=== PATIENT | female | born 1995 | race Caucasian/White ===

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

== ENCOUNTER 2017-04-24 08:44 | Emergency (ER) | payer SELFPAY ==
[2017-04-24] MEDS ORDERED: HYDROcodone/APAP 5/325MG 1 TAB TABLET ×2 (09:49)
[2017-04-24 12:05] LABS: NEGATIVE OBC STREP NEG; POSITIVE OBC STREP POS
== END 2017-04-24 09:55 | disposition home or self-care (01) ==
LOC: ER 08:44
DX: J02.9 Acute pharyngitis, unspecified (principal); J45.909 Unspecified asthma, uncomplicated; Z88.2 Allergy status to sulfonamides; Z88.1 Allergy status to other antibiotic agents; Z88.5 Allergy status to narcotic agent; Z91.013 Allergy to seafood
CPT/HCPCS: 87070; 87880; 99283

== ENCOUNTER 2017-06-03 17:35 | Emergency (ER) | payer SELFPAY ==
[2017-06-03] MEDS: ALBUTEROL SULFATE 2.5 MG/3 ML NEBU. INH (18:27)
[2017-06-03] MEDS: IPRATRPIUM/ALBUTEROL 0.5/2.5MG 3 ML NEBU. NEB (18:27)
[2017-06-03] MEDS: predniSONE 10 MG TABLET PO (19:04)
== END 2017-06-03 19:33 | disposition home or self-care (01) ==
LOC: ER 17:35
DX: J45.901 Unspecified asthma with (acute) exacerbation (principal); E66.9 Obesity, unspecified; Z88.2 Allergy status to sulfonamides; Z79.899 Other long term (current) drug therapy; Z88.1 Allergy status to other antibiotic agents; Z88.5 Allergy status to narcotic agent; Z91.013 Allergy to seafood
CPT/HCPCS: 71046; 94640; 99284-25; J7512; J7613; J7620

== ENCOUNTER 2017-07-11 20:59 | Emergency (ER) | payer SELFPAY | END 2017-07-11 21:42 | disposition left against medical advice (07) | LOC: ER 20:59 | DX: R05 Cough (principal); R09.81 Nasal congestion; Z53.21 Procedure and treatment not carried out due to patient leaving prior to being seen by health care provider ==

== ENCOUNTER 2017-07-12 12:53 | Emergency (ER) | payer SELFPAY | END 2017-07-12 14:20 | disposition home or self-care (01) | LOC: ER 12:53 | DX: J30.2 Other seasonal allergic rhinitis (principal); J45.909 Unspecified asthma, uncomplicated; Z88.2 Allergy status to sulfonamides; Z88.8 Allergy status to other drugs, medicaments and biological substances; Z88.5 Allergy status to narcotic agent; Z91.013 Allergy to seafood | CPT/HCPCS: 99283 ==

== ENCOUNTER 2017-07-22 13:06 | Emergency (ER) | payer SELFPAY ==
[2017-07-22] MEDS: IV NORMAL SALINE 1000ML BAG 1,000 ML IV (14:15)
[2017-07-22] MEDS: ONDANSETRON PF 4 MG/2 ML VIAL. IV (14:15)
[2017-07-22] MEDS: DICYCLOMINE HCL 10 MG CAPSULE PO (14:15)
[2017-07-22 14:16] LABS: ADD MAN DIFF? NO
[2017-07-22 14:20] LABS: BASO % 1 % (0-3); EOS # 0.2 x10^3/uL (0.0-0.7); EOS % 2 % (0-3); HEMOGLOBIN 15.9 g/dL (12.0-15.5); LYMPH # 1.5 x10^3/uL (1.0-4.8); LYMPH % 16 % (24-48); MEAN CORPUSCULAR HEMOGLOBIN 30 pg (25-35); MEAN CORPUSCULAR HGB CONC 35 g/dL (31-37); MEAN CORPUSCULAR VOLUME 84 fL (79-100); MONO # 0.8 x10^3/uL (0.0-1.1); MONO % 8 % (0-9); NEUT # 6.8 x10^3uL (1.8-7.7); NEUT % 73 % (31-73); PLATELET COUNT 275 x10^3/uL (140-400); RED BLOOD COUNT 5.38 x10^6/uL (3.50-5.40); RED CELL DISTRIBUTION WIDTH 13.5 % (11.5-14.5); WHITE BLOOD COUNT 9.3 x10^3/uL (4.0-11.0)
[2017-07-22 14:29] LABS: ANION GAP 10 (6-14); BLOOD UREA NITROGEN 9 mg/dL (7-20); BUN/CREATININE RATIO 11 (6-20); CALCIUM 8.6 mg/dL (8.5-10.1); CARBON DIOXIDE 26 mmol/L (21-32); CHLORIDE 104 mmol/L (98-107); CREATININE 0.8 mg/dL (0.6-1.0); GFR 91.4; GLUCOSE 92 mg/dL (70-99); POTASSIUM 3.8 mmol/L (3.5-5.1); SODIUM 140 mmol/L (136-145)
[2017-07-22 14:35] LABS: ALBUMIN 3.6 g/dL (3.4-5.0); ALBUMIN/GLOBULIN RATIO 0.8 (1.0-1.7); ALK PHOS 77 U/L (46-116); ALT (SGPT) 24 U/L (14-59); AST (SGOT) 18 U/L (15-37); LIPASE 91 U/L (73-393); TOTAL BILIRUBIN 0.9 mg/dL (0.2-1.0)
[2017-07-22 14:51] LABS: NEG OBC UR NEG; POS OBC UR POS; U PREG PATIENT NEGATIVE (NEG)
[2017-07-22 14:52] LABS: BILIRUBIN,URINE NEGATIVE (NEG); CLARITY,URINE CLEAR; GLUCOSE,URINE NEGATIVE (NEG); NITRITE,URINE NEGATIVE (NEG); PH,URINE 5.5; PROTEIN,URINE NEGATIVE (NEG-TRACE)
[2017-07-22 15:14] LABS: COLOR,URINE DK YELLOW; RBC,URINE 0 /HPF (0-2)
[2017-07-22 15:15] LABS: BACTERIA,URINE MANY /HPF (0-FEW); SQUAMOUS EPITHELIAL CELL,UR MANY /LPF
[2017-07-23 05:25] LABS: C DIFF BY PCR Negative (Negative)
== END 2017-07-22 15:59 | disposition home or self-care (01) ==
LOC: ER 13:06
DX: N30.00 Acute cystitis without hematuria (principal); R19.7 Diarrhea, unspecified; J45.909 Unspecified asthma, uncomplicated; Z88.2 Allergy status to sulfonamides; Z88.8 Allergy status to other drugs, medicaments and biological substances; Z88.5 Allergy status to narcotic agent; Z91.013 Allergy to seafood
CPT/HCPCS: 36415; 80053; 81001; 81025; 83690; 85025; 87045; 87086; 87324; 96361; 96374; 99284; J2405; J7030

== ENCOUNTER 2018-01-11 08:42 | Emergency (ER) | payer SELFPAY ==
[~2018-01-11] VITALS: Ht 167.6 cm; Wt 104.3 kg
[~2018-01-11 08:42] MED LIST changes: +AMOX500C PO; +CEPH500T PO; +FLUT9.9S NS; +HYDR-971 PO; +METR500T PO; +MONT10TA9 PO; +ONDA4TAB10 SL; +PRED50TA PO; +PROAIR HFA8.5 GM INH; +VENTOLIN HFA18 GM INH
[2018-01-11 08:52] VITALS: BP 120/67
--- NOTE | 2018-01-11 08:59 | PHYS DOC ---
Past Medical History Past Medical History: Asthma, Other Additional Past Medical Histor: seasonal allergies Past Surgical History: Other Additional Past Surgical Histo: I&D LEFT EAR Alcohol Use: None Drug Use: None Adult General Chief Complaint Chief Complaint: SORE THROAT HPI HPI Patient is a 22 year old female with history of asthma, smoking, who presents today complaining of sore throat, body aches, chills, bilateral ear pain rated as mild described as sharp, since yesterday. Also complaining of 3 episodes of diarrhea. Denies any fever. Review of Systems Review of Systems Constitutional: Reports chills, denies fever Eyes: Denies change in visual acuity, redness, or eye pain [] HENT: Denies nasal congestion or sore throat [] Respiratory: Denies cough or shortness of breath [] Cardiovascular: No additional information not addressed in HPI [] GI: Reports diarrhea. Denies abdominal pain, nausea, vomiting, bloody stools : Denies dysuria or hematuria [] Musculoskeletal: Denies back pain or joint pain [] Integument: Denies rash or skin lesions [] Neurologic: Denies headache, focal weakness or sensory changes [] All other systems were reviewed and found to be within normal limits, except as documented in this note. Allergies Allergies Allergies Coded Allergies Type Severity Reaction Last Updated Verified Sulfa (Sulfonamide Antibiotics) Allergy Intermediate stomach aches 12/09/13 Yes albendazole Allergy Intermediate Rash 03/07/14 No codeine Allergy Intermediate H/A's 12/09/13 Yes shrimp Allergy Intermediate Unknown 10/11/16 Yes Physical Exam Physical Exam Constitutional: Well developed, well nourished, no acute distress, non-toxic appearance. [] HENT: Normocephalic, atraumatic, bilateral external ears normal, oropharynx moist, no oral exudates, patient sounds congested nasally, left TM with moderate erythema and mild amount of cloudy fluid. Eyes: PERRLA, EOMI, conjunctiva normal, no discharge. [] Neck: Normal range of motion, no tenderness, supple, no stridor. [] Cardiovascular:Heart rate regular rhythm, no murmur [] Lungs & Thorax: Bilateral breath sounds clear to auscultation [] Abdomen: Bowel sounds normal, soft, no tenderness, no masses, no pulsatile masses. [] Skin: Warm, dry, no erythema, no rash. [] Back: No tenderness, no CVA tenderness. [] Extremities: No tenderness, no cyanosis, no clubbing, ROM intact, no edema. [] Neurologic: Alert and oriented X 3, normal motor function, normal sensory function, no focal deficits noted. [] Psychologic: Affect normal, judgement normal, mood normal. [] Current Patient Data Vital Signs Vital Signs Date Time Temp Pulse Resp B/P (MAP) Pulse Ox O2 Delivery O2 Flow Rate FiO2 01/11/18 08:52 98.6 105 16 120/67 (84) 97 Room Air 98.6 EKG EKG [] Radiology/Procedures Radiology/Procedures [] Course & Med Decision Making Course & Med Decision Making Pertinent Labs and Imaging studies reviewed. (See chart for details) This is a 22-year-old female patient presenting with symptoms of pharyngitis, left otitis media, and upper respiratory infection. Also had an episode of diarrhea which could be viral/food related and will probably ran its own cause. Will Be Discharged with Amoxicillin for 10 Days. Tylenol/Motrin for Pain. Saltwater Gargles Also Recommended. Follow-Up in One to 2 Weeks. Smoking cessation advised. Dragon Disclaimer Dragon Disclaimer This electronic medical record was generated, in whole or in part, using a voice recognition dictation system. Departure Departure Impression: Primary Impression: Viral pharyngitis Additional Impressions: Upper respiratory infection Otitis media of left ear Diarrhea Chills Smoking addiction Disposition: 01 HOME, SELF-CARE Condition: STABLE Referrals: MADHAVI LUCAS MD (PCP) follow up in one week Patient Instructions: Diarrhea, [id number], Otitis Media, Adult, Upper Respiratory Infection, Adult, [id number]-[id number], Viral Pharyngitis Additional Instructions: You have pharyngitis, left otitis media, and upper respiratory infection. We put you on antibiotics, ensure you complete them. Your diarrhea will run its own course it is probably viral or food related. Scripts Albuterol Sulfate (VENTOLIN HFA INHALER) 18 Gm Hfa.aer.ad 2 PUFF INH Q4HRS for FOR ASTHMA, #1 INHALER 0 Refills Prov: MUTUNGA,CESAR WATER CONTROL SUPERVISOR 01/11/18 Amoxicillin (AMOXICILLIN) 875 Mg Tablet 1 TAB PO BID, #20 TAB Prov: MUTUNGA,CESAR WATER CONTROL SUPERVISOR 01/11/18 Problem Qualifiers Additional Impressions: Upper respiratory infection URI type: unspecified URI Qualified Codes: J06.9 - Acute upper respiratory infection, unspecified Otitis media of left ear Otitis media type: other nonsuppurative Chronicity: acute Recurrence: not specified as recurrent Qualified Codes: H65.192 - Other acute nonsuppurative otitis media, left ear Diarrhea Diarrhea type: unspecified type Qualified Codes: R19.7 - Diarrhea, unspecified MUTUNGA,CESAR WATER CONTROL SUPERVISOR Jan 11, 2018 08:59
[2018-01-11] MEDS ORDERED: AMOX875T PO (09:09)
[2018-01-11] MEDS ORDERED: VENTOLIN HFA18 GM INH (09:23)
== END 2018-01-11 09:16 | disposition home or self-care (01) ==
LOC: ER 08:42
DX: J02.9 Acute pharyngitis, unspecified (principal); B97.89 Other viral agents as the cause of diseases classified elsewhere; J06.9 Acute upper respiratory infection, unspecified; H66.92 Otitis media, unspecified, left ear; R19.7 Diarrhea, unspecified; R68.83 Chills (without fever); F17.200 Nicotine dependence, unspecified, uncomplicated; J45.909 Unspecified asthma, uncomplicated; Z88.2 Allergy status to sulfonamides; Z88.5 Allergy status to narcotic agent; Z88.8 Allergy status to other drugs, medicaments and biological substances; Z91.013 Allergy to seafood
CPT/HCPCS: 99283

== ENCOUNTER 2018-03-26 11:35 | Emergency (ER) | payer SELFPAY ==
[~2018-03-26] VITALS: Ht 165.1 cm; Wt 113.4 kg
[~2018-03-26 11:35] MED LIST changes: +ALBU2.5V8 IH; +ALBU2.5V8 INH; +AMOX875T PO; +HYDR-3164 PO; -HYDR-971 PO; +MONT10TA49 PO; -MONT10TA6 PO; -MONT10TA9 PO; +PRED20TA PO; -PROAIR HFA8.5 GM IH; -PROAIR HFA8.5 GM INH
[2018-03-26 12:14] LABS: CLARITY,URINE BLOODY
[2018-03-26] MEDS ORDERED: IV NORMAL SALINE 1000ML BAG 1,000 ML IV ONE (12:15)
[2018-03-26] MEDS ORDERED: fentaNYL PF VIAL 100 MCG/2 ML VIAL IV ONE ×2 (12:15→15:15)
[2018-03-26] MEDS ORDERED: ONDANSETRON PF 4 MG/2 ML VIAL. IV ONE (12:15)
[2018-03-26 12:16] LABS: COLOR,URINE RED; SQUAMOUS EPITHELIAL CELL,UR FEW /LPF
[2018-03-26 12:17] LABS: BACTERIA,URINE FEW /HPF (0-FEW); RBC,URINE TNTC /HPF (0-2); WBC,URINE 0 /HPF (0-4)
[2018-03-26 12:34] LABS: BASO # 0.1 x10^3/uL (0.0-0.2); BASO % 1 % (0-3); EOS # 0.4 x10^3/uL (0.0-0.7); EOS % 4 % (0-3); HEMOGLOBIN 14.7 g/dL (12.0-15.5); LYMPH # 1.9 x10^3/uL (1.0-4.8); LYMPH % 19 % (24-48); MEAN CORPUSCULAR HEMOGLOBIN 30 pg (25-35); MEAN CORPUSCULAR HGB CONC 35 g/dL (31-37); MEAN CORPUSCULAR VOLUME 85 fL (79-100); MONO # 0.6 x10^3/uL (0.0-1.1); MONO % 6 % (0-9); NEUT # 7.2 x10^3uL (1.8-7.7); NEUT % 71 % (31-73); PLATELET COUNT 320 x10^3/uL (140-400); RED BLOOD COUNT 4.96 x10^6/uL (3.50-5.40); RED CELL DISTRIBUTION WIDTH 13.4 % (11.5-14.5); WHITE BLOOD COUNT 10.1 x10^3/uL (4.0-11.0)
[2018-03-26 12:52] LABS: CALCIUM 9.3 mg/dL (8.5-10.1); CREATININE 0.8 mg/dL (0.6-1.0); GFR 91.4; POTASSIUM 3.6 mmol/L (3.5-5.1)
[2018-03-26 12:58] LABS: ALBUMIN 3.5 g/dL (3.4-5.0); ALBUMIN/GLOBULIN RATIO 0.9 (1.0-1.7); TOTAL BILIRUBIN 0.5 mg/dL (0.2-1.0); TOTAL PROTEIN 7.6 g/dL (6.4-8.2)
[2018-03-26] MEDS ORDERED: MORPHINE SULFATE 10 MG/ML VIAL. IV ONE (13:45)
--- NOTE | 2018-03-26 14:20 | PHYS DOC ---
Past Medical History Past Medical History: Asthma, Other Additional Past Medical Histor: seasonal allergies Past Surgical History: Other Additional Past Surgical Histo: I&D LEFT EAR Alcohol Use: None Drug Use: None Adult General Chief Complaint Chief Complaint: VAGINAL BLEEDING HPI HPI Patient is a 22 year old female who presents with vaginal bleeding and moderate lower abdominal pain described as sharp and cramping that began at 9 AM. Patient states she could be . Her last menstrual cycle was 1 year ago when she had a miscarriage. She states her cycles are irregular. She states she is Rh- as well. Patient is restless asking for pain medicine. Hard to examine right now. She states she's had vaginal bleeding that began 3 days ago as spotting and now she is heavily bleeding. She states the heavy bleeding began at 9 AM. Positive urine hCG and arrival to the ED. She is a 2 para 0 Review of Systems Review of Systems Constitutional: Denies fever or chills [] Eyes: Denies change in visual acuity, redness, or eye pain [] HENT: Denies nasal congestion or sore throat [] Respiratory: Denies cough or shortness of breath [] Cardiovascular: No additional information not addressed in HPI [] GI: Reports vaginal bleeding and abdominal pain, denies vomiting, bloody stools or diarrhea [] : Denies dysuria or hematuria [] Musculoskeletal: Denies back pain or joint pain [] Integument: Denies rash or skin lesions [] Neurologic: Denies headache, focal weakness or sensory changes [] All other systems were reviewed and found to be within normal limits, except as documented in this note. Current Medications Current Medications Current Medications Medications (Trade) Dose Ordered Sig/Cristy Start Time Stop Time Status Last Admin Dose Admin Fentanyl Citrate (Fentanyl 2ml Vial) 25 mcg 1X ONCE 03/26/18 15:15 03/26/18 15:16 DC 03/26/18 15:39 25 MCG Morphine Sulfate (Morphine Sulfate) 5 mg 1X ONCE 03/26/18 13:45 03/26/18 13:46 DC 03/26/18 13:47 5 MG Ondansetron HCl (Zofran) 4 mg 1X ONCE 03/26/18 12:15 03/26/18 12:16 DC 03/26/18 12:31 4 MG Sodium Chloride 1,000 ml @ 1,000 mls/hr 1X ONCE 03/26/18 12:15 03/26/18 13:14 DC 03/26/18 12:34 1,000 MLS/HR Allergies Allergies Allergies Coded Allergies Type Severity Reaction Last Updated Verified Sulfa (Sulfonamide Antibiotics) Allergy Intermediate stomach aches 12/09/13 Yes albendazole Allergy Intermediate Rash 03/07/14 No codeine Allergy Intermediate H/A's 12/09/13 Yes shrimp Allergy Intermediate Unknown 10/11/16 Yes Physical Exam Physical Exam Constitutional: Well developed, well nourished, no acute distress, non-toxic appearance. [] HENT: Normocephalic, atraumatic, bilateral external ears normal, oropharynx moist, no oral exudates, nose normal. [] Eyes: PERRLA, EOMI, conjunctiva normal, no discharge. [] Neck: Normal range of motion, no tenderness, supple, no stridor. [] Cardiovascular:Heart rate regular rhythm, no murmur [] Lungs & Thorax: Bilateral breath sounds clear to auscultation [] Abdomen: Bowel sounds normal, soft, no tenderness, no masses, no pulsatile masses. [] Pelvic exam External pelvic is normal other it's covered with small amount of blood. Patient is restless, exam difficult, small amount of bright red blood noted in the vaginal vault, cervix is visualized, no CMT, no adnexal tenderness. Skin: Warm, dry, no erythema, no rash. [] Back: No tenderness, no CVA tenderness. [] Extremities: No tenderness, no cyanosis, no clubbing, ROM intact, no edema. [] Neurologic: Alert and oriented X 3, normal motor function, normal sensory function, no focal deficits noted. [] Psychologic: Affect normal, judgement normal, mood normal. [] Current Patient Data Vital Signs Vital Signs Date Time Temp Pulse Resp B/P (MAP) Pulse Ox O2 Delivery O2 Flow Rate FiO2 03/26/18 15:39 17 98 Room Air 03/26/18 15:00 76 109/63 (78) 03/26/18 11:45 97.8 97.8 Lab Values Laboratory Tests Test 03/26/18 11:50 03/26/18 12:02 03/26/18 12:05 White Blood Count 10.1 x10^3/uL (4.0-11.0) Red Blood Count 4.96 x10^6/uL (3.50-5.40) Hemoglobin 14.7 g/dL (12.0-15.5) Hematocrit 42.0 % (36.0-47.0) Mean Corpuscular Volume 85 fL (79-100) Mean Corpuscular Hemoglobin 30 pg (25-35) Mean Corpuscular Hemoglobin Concent 35 g/dL (31-37) Red Cell Distribution Width 13.4 % (11.5-14.5) Platelet Count 320 x10^3/uL (140-400) Neutrophils (%) (Auto) 71 % (31-73) Lymphocytes (%) (Auto) 19 % (24-48) L Monocytes (%) (Auto) 6 % (0-9) Eosinophils (%) (Auto) 4 % (0-3) H Basophils (%) (Auto) 1 % (0-3) Neutrophils # (Auto) 7.2 x10^3uL (1.8-7.7) Lymphocytes # (Auto) 1.9 x10^3/uL (1.0-4.8) Monocytes # (Auto) 0.6 x10^3/uL (0.0-1.1) Eosinophils # (Auto) 0.4 x10^3/uL (0.0-0.7) Basophils # (Auto) 0.1 x10^3/uL (0.0-0.2) Maternal Serum HCG Beta Subunit 2995 mIU/mL (0-5) H Sodium Level 139 mmol/L (136-145) Potassium Level 3.6 mmol/L (3.5-5.1) Chloride Level 104 mmol/L (98-107) Carbon Dioxide Level 22 mmol/L (21-32) Anion Gap 13 (6-14) Blood Urea Nitrogen 6 mg/dL (7-20) L Creatinine 0.8 mg/dL (0.6-1.0) Estimated GFR (Cockcroft-Gault) 91.4 BUN/Creatinine Ratio 8 (6-20) Glucose Level 94 mg/dL (70-99) Calcium Level 9.3 mg/dL (8.5-10.1) Total Bilirubin 0.5 mg/dL (0.2-1.0) Aspartate Amino Transferase (AST) 19 U/L (15-37) Alanine Aminotransferase (ALT) 24 U/L (14-59) Alkaline Phosphatase 70 U/L (46-116) Total Protein 7.6 g/dL (6.4-8.2) Albumin 3.5 g/dL (3.4-5.0) Albumin/Globulin Ratio 0.9 (1.0-1.7) L POC Urine HCG, Qualitative Hcg positive (Negative) Urine Collection Type Unknown Urine Color Red Urine Clarity Bloody Urine pH Urine Specific [place] 1.025 Urine Protein mg/dL (NEG-TRACE) Urine Glucose (UA) mg/dL (NEG) Urine Ketones (Stick) mg/dL (NEG) Urine Blood (NEG) Urine Nitrite (NEG) Urine Bilirubin (NEG) Urine Urobilinogen Dipstick mg/dL (0.2 mg/dL) Urine Leukocyte Esterase (NEG) Urine RBC Tntc /HPF (0-2) Urine WBC 0 /HPF (0-4) Urine Squamous Epithelial Cells Few /LPF Urine Bacteria Few /HPF (0-FEW) Urine Mucus Slight /LPF Laboratory Tests 03/26/18 11:50 Laboratory Tests 03/26/18 11:50 EKG EKG [] Radiology/Procedures Radiology/Procedures []PROCEDURE: OB TRANSVAG OB TRANSVAG Clinical Indication: Quant beta hcg 2,995. Heavy bleeding. Comparison: None. TECHNIQUE: Real-time ultrasound imaging of the pelvis using transabdominal and transvaginal window is performed. Findings: Retroverted uterus. Uterus measures 9.8 x 4.7 x 4 cm. Endometrial stripe measures 6 mm, normal. There is intrauterine gestational sac that is positioned lower than expected and is just above the cervix. No perigestational hemorrhage is seen. In the gestational sac a yolk sac and pole are identified. Gestational sac diameter 1.2 cm 6 weeks and 0 days. [place]-rump length 0.3 cm, 6 weeks and 0 days. heart tones are not identified. Normal blood flow in the maternal ovaries. The right measures 4 x 2.8 x 2.8 cm. The left measures 2.9 x 2.1 x 2.6 cm. IMPRESSION: There is intrauterine gestational sac positioned lower than expected just above the cervix. Internally a pole and yolk sac are identified. heart tones are not detected. Cannot exclude failed first trimester . Suggest serial quantitative beta-hCG. Electronically signed by: Salomón Mahoney MD (03/26/2018 2:42 PM) [facility] DICTATED and SIGNED BY: SALOMÓN MAHONEY MD DATE: 03/26/18 9967 Course & Med Decision Making Course & Med Decision Making Pertinent Labs and Imaging studies reviewed. (See chart for details) This is a 22-year-old female patient presenting to the ED today with vaginal bleeding and abdominal pain that began today. She states she could also be . She has small amount of bleeding during pelvic exam. Positive urine hCG. She is a 2 para 0 and had a miscarriage last year around the same time. She is Rh-.RhoGam given. Hemoglobin is normal, WBC is normal. Beta hCG 2995, CMP with no acute findings. OB ultrasound. There is intrauterine gestational sac positioned lower than expected just above the cervix. Internally a pole and yolk sac are identified. heart tones are not detected. Cannot exclude failed first trimester . Suggest serial quantitative beta-hCG. Patient's pain is well controlled. She is in no distress. She was discharged with instructions to follow-up with an POST PRODUCTION ASSISTANT which we provided on Wednesday. She is provided return precautions and discharged in stable condition. Staff Physician Addendum: I was working in the ER during the course of this patient's visit. I was available for consultation as needed, but I was not directly involved in the care of this patient. Delmar Disclaimer Delmar Disclaimer This electronic medical record was generated, in whole or in part, using a voice recognition dictation system. Departure Departure Impression: Primary Impression: Miscarriage, threatened, early Additional Impression: Rh negative status during Disposition: HOME, SELF-CARE Condition: STABLE Referrals: NO PCP (PCP) KAYLA MOYA Jr, MD call and follow up on Wednesday Patient Instructions: Threatened Miscarriage Additional Instructions: You were evaluated in the emergency room and noted to have vaginal bleeding in , we highly suspect you are having a miscarriage. Please maintain pelvic rest, no sex, no strenuous activities until you're seen by the POST PRODUCTION ASSISTANT. Contact the provided POST PRODUCTION ASSISTANT on Wednesday morning and set up a follow-up appointment. Please come back to the emergency room at any point symptoms worsen. Scripts Hydrocodone/Apap 5-325 (NORCO 5-325 TABLET) 1 Each Tablet 1 TAB PO Q6HRS, #20 TAB Prov: CESAR RUSSELL ELECTRICAL ASSEMBLY SUPERVISOR 03/26/18 Problem Qualifiers Additional Impression: Rh negative status during Trimester: first trimester Qualified Codes: O26.891 - Other specified related conditions, first trimester; Z67.91 - Unspecified blood type, rh negative CESAR RUSSELL APRN Mar 26, 2018 14:20 MAXIMILIAN OLMEDO MD Mar 26, 2018 17:58
--- NOTE | 2018-03-26 14:46 | RAD ---
OB TRANSVAG Clinical Indication: Quant beta hcg 2,995. Heavy bleeding. Comparison: None. TECHNIQUE: Real-time ultrasound imaging of the pelvis using transabdominal and transvaginal window is performed. Findings: Retroverted uterus. Uterus measures 9.8 x 4.7 x 4 cm. Endometrial stripe measures 6 mm, normal. There is intrauterine gestational sac that is positioned lower than expected and is just above the cervix. No perigestational hemorrhage is seen. In the gestational sac a yolk sac and pole are identified. Gestational sac diameter 1.2 cm 6 weeks and 0 days. [place]-rump length 0.3 cm, 6 weeks and 0 days. heart tones are not identified. Normal blood flow in the maternal ovaries. The right measures 4 x 2.8 x 2.8 cm. The left measures 2.9 x 2.1 x 2.6 cm. IMPRESSION: There is intrauterine gestational sac positioned lower than expected just above the cervix. Internally a pole and yolk sac are identified. heart tones are not detected. Cannot exclude failed first trimester . Suggest serial quantitative beta-hCG. Electronically signed by: Salomón Mahoney MD (03/26/2018 2:42 PM) [facility]
[2018-03-26 15:00] VITALS: BP 109/63
[2018-03-26] MEDS ORDERED: HYDR-3164 PO (15:25)
== END 2018-03-26 15:45 | disposition home or self-care (01) ==
LOC: ER 11:35
DX: O20.0 Threatened abortion (principal); O26.893 Other specified pregnancy related conditions, third trimester; Z67.91 Unspecified blood type, Rh negative; O99.511 Diseases of the respiratory system complicating pregnancy, first trimester; J45.909 Unspecified asthma, uncomplicated; Z3A.01 Less than 8 weeks gestation of pregnancy; Z88.2 Allergy status to sulfonamides; Z88.5 Allergy status to narcotic agent; Z88.8 Allergy status to other drugs, medicaments and biological substances; Z91.013 Allergy to seafood
CPT/HCPCS: 36415; 36430; 76817; 80053; 81001; 81025; 84702; 85025; 86850; 86900; 86901; 96374; 96375; 96376; 99285; J2270; J2405; J2791; J3010; J7030

== ENCOUNTER 2019-09-11 23:10 | Emergency (ER) | payer OTHER ==
[~2019-09-11] VITALS: Ht 167.6 cm; Wt 78.6 kg
[~2019-09-11 23:10] MED LIST changes: -CETI10TA22 PO; +CETI10TA74 PO
[2019-09-11 23:20] VITALS: BP 105/58
[2019-09-11] MEDS ORDERED: diphenhydrAMINE HCL 25 MG CAPSULE PO ONE (23:45)
[2019-09-11] MEDS ORDERED: methylPREDNISolone ACETATE 40 MG/ML VIAL. IM ONE (23:45)
[2019-09-11] MEDS ORDERED: ALBU2.5V8 INH (23:46)
--- NOTE | 2019-09-11 23:47 | PHYS DOC ---
Past Medical History Past Medical History: Asthma, Other Additional Past Medical Histor: seasonal allergies Past Surgical History: Other Additional Past Surgical Histo: I&D LEFT EAR Smoking Status: Current Every Day Smoker Alcohol Use: None Drug Use: None General Adult EDM: Chief Complaint: SKIN RASH/ABSCESS HPI: HPI: Patient is a 24 year old female patient who presents with full body rash. Patient reports she is had this rash intermittently for the last month, states that it has gotten better one time but then returned to his current condition. States that seems worse he had her legs, under her breasts, and other areas where her skin touches itself frequently. States she had tried some prescription allergy medications for it, and has had very little relief. Repo rts that she takes 4-5 hot baths each day, states since this she has noticed it to continue to get worse. Denies any new medications denies any new food products denies any new detergents. States she had tried changing different detergents after the rash started but nothing changed her rash Review of Systems: Review of Systems: Constitutional: Denies fever Respiratory: Denies cough or shortness of breath. Does report she has asthma, has not had to use inhaler more than usual [] Cardiovascular: Denies chest pain or edema. [] GI: Denies abdominal pain, nausea, vomiting, bloody stools or diarrhea. [] : Denies dysuria. [] Integument: Reports generalized body rash rash. [] Neurologic: Denies headache, focal weakness or sensory changes. [] Heart Score: Risk Factors: Risk Factors: DM, Current or recent (<one month) smoker, HTN, HLP, family history of CAD, obesity. Risk Scores: Score 0 - 3: 2.5% MACE over next 6 weeks - Discharge Home Score 4 - 6: 20.3% MACE over next 6 weeks - Admit for Clinical Observation Score 7 - 10: 72.7% MACE over next 6 weeks - Early Invasive Strategies Allergies: Allergies: Allergies Coded Allergies Type Severity Reaction Last Updated Verified Sulfa (Sulfonamide Antibiotics) Allergy Intermediate stomach aches 12/09/13 Yes albendazole Allergy Intermediate Rash 03/07/14 No codeine Allergy Intermediate H/A's 12/09/13 Yes shrimp Allergy Intermediate Unknown 10/11/16 Yes Physical Exam: PE: Constitutional: Well developed, well nourished, no acute distress, non-toxic appearance. [] HENT: Normocephalic, atraumatic, bilateral external ears normal, oropharynx moist, no oral exudates, nose normal. [] Lungs & Thorax: Bilateral breath sounds clear to auscultation [] Abdomen: Bowel sounds normal, soft, no tenderness, no masses, no pulsatile masses. [] Skin: Warm, dry, no erythema, widespread generalized papular rash of numerous pink ,<1mm slightly raised bumps. Scabbing noted to feet. erythematous skin surrounding region patient scratching. No hives. No pustules. Back: No tenderness, no CVA tenderness. [] Extremities: No tenderness, no cyanosis, no clubbing, ROM intact, no edema. [] Neurologic: Alert and oriented X 3, normal motor function, normal sensory function, no focal deficits noted. [] Psychologic: Affect normal, judgement normal, mood normal. [] Current Patient Data: Vital Signs: Vital Signs Date Time Temp Pulse Resp B/P (MAP) Pulse Ox O2 Delivery O2 Flow Rate FiO2 09/11/19 23:20 98.1 75 20 105/58 (74) 98 Room Air 98.1 EKG: EKG: [] Radiology/Procedures: Radiology/Procedures: [] Course & Med Decision Making: Course & Med Decision Making Pertinent Labs and Imaging studies reviewed. (See chart for details) []Consideration for folliculitis due to numerous baths, but no signs of infection, no pustules, water changed each bath. Appears related to heat, as rash worse in areas of skin folds. Delmar Disclaimer: [place] Disclaimer: This electronic medical record was generated, in whole or in part, using a voice recognition dictation system. Departure Departure Impression: Primary Impression: Dermatitis due to unknown cause Disposition: HOME, SELF-CARE Condition: GOOD Referrals: NO PCP (PCP) Patient Instructions: Heat Rash Additional Instructions: As we discussed, try to avoid the long hot baths every day that you are taking. You may consider taking an oatmeal bath, as we discussed. You can look online for instructions on how to make your own, if you cannot find the products in stores. Make sure after you bathe, that you dry any moist areas completely. Use your inhaler if needed for your asthma. Find a Primary care provider and an OBGYN to manage your women's health issues and provide further refills on your inhaler. Scripts Albuterol Sulfate (PROAIR HFA INHALER) 8.5 Gm Hfa.aer.ad 1 PUFF INH PRN Q6HRS PRN for SHORTNESS OF BREATH, #1 INHALER 0 Refills Prov: DANIEL RADER APRN 09/11/19 Justicifation of Admission Dx: Justifications for Admission: Justification of Admission Dx: N/A DANIEL RADER APRN Sep 11, 2019 23:47
== END 2019-09-11 23:59 | disposition home or self-care (01) ==
LOC: ER 23:10
DX: L30.9 Dermatitis, unspecified (principal); R21 Rash and other nonspecific skin eruption; L53.9 Erythematous condition, unspecified; J45.909 Unspecified asthma, uncomplicated; F17.200 Nicotine dependence, unspecified, uncomplicated; Z98.890 Other specified postprocedural states; Z88.2 Allergy status to sulfonamides; Z88.5 Allergy status to narcotic agent; Z91.013 Allergy to seafood
CPT/HCPCS: 96372; 99283; J1030; Q0163

== ENCOUNTER 2019-11-02 15:38 | Emergency (ER) | payer OTHER ==
[~2019-11-02] VITALS: Ht 167.6 cm; Wt 80.0 kg
[~2019-11-02 15:38] MED LIST changes: +CETI10TA24 PO; -CETI10TA74 PO
[2019-11-02 16:00] LABS: BILIRUBIN,URINE NEGATIVE (NEG); CLARITY,URINE CLEAR; COLOR,URINE YELLOW; NITRITE,URINE NEGATIVE (NEG); PROTEIN,URINE NEGATIVE (NEG-TRACE); UROBILINOGEN,URINE 0.2 mg/dL (0.2 mg/dL)
[2019-11-02 16:05] LABS: SQUAMOUS EPITHELIAL CELL,UR FEW /LPF
[2019-11-02 16:07] LABS: BACTERIA,URINE FEW /HPF (0-FEW); RBC,URINE 0 /HPF (0-2)
[2019-11-02 17:12] LABS: BASO # 0.1 x10^3/uL (0.0-0.2); BASO % 1 % (0-3); EOS # 0.1 x10^3/uL (0.0-0.7); EOS % 1 % (0-3); HEMATOCRIT 41.8 % (36.0-47.0); HEMOGLOBIN 14.5 g/dL (12.0-15.5); LYMPH % 18 % (24-48); MEAN CORPUSCULAR HEMOGLOBIN 30 pg (25-35); MEAN CORPUSCULAR HGB CONC 35 g/dL (31-37); MEAN CORPUSCULAR VOLUME 86 fL (79-100); MONO # 0.5 x10^3/uL (0.0-1.1); MONO % 5 % (0-9); NEUT # 8.4 x10^3/uL (1.8-7.7); NEUT % 76 % (31-73); PLATELET COUNT 297 x10^3/uL (140-400); RED BLOOD COUNT 4.87 x10^6/uL (3.50-5.40); RED CELL DISTRIBUTION WIDTH 12.8 % (11.5-14.5); WHITE BLOOD COUNT 11.1 x10^3/uL (4.0-11.0)
[2019-11-02 17:22] LABS: CALCIUM 8.7 mg/dL (8.5-10.1); CREATININE 0.8 mg/dL (0.6-1.0); GFR 89.7; POTASSIUM 3.8 mmol/L (3.5-5.1)
[2019-11-02 17:28] LABS: ALBUMIN 3.5 g/dL (3.4-5.0); ALBUMIN/GLOBULIN RATIO 0.9 (1.0-1.7); TOTAL BILIRUBIN 0.4 mg/dL (0.2-1.0); TOTAL PROTEIN 7.3 g/dL (6.4-8.2)
--- NOTE | 2019-11-02 17:52 | PHYS DOC ---
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 Do not know she was until today when she took urine test. History of 2 spontaneous abortions in first trimester. On no AC medications. ROS: Denies any associated fever, chills, vaginal bleeding, abnormal vaginal discharge itching or odor, dysuria, hematuria, flank pain, cough, sore throat, chest pain, dyspnea, nausea, vomiting, diarrhea, leg swelling, rash, hemoptysis, headache, neck stiffness or abdominal pain. Review of Systems: Review of Systems: Constitutional: Denies fever or chills. [] Eyes: Denies change in visual acuity. [] HENT: Denies nasal congestion or sore throat. [] Respiratory: Denies cough or shortness of breath. [] Cardiovascular: Denies chest pain or edema. [] GI: Denies abdominal pain, nausea, vomiting, bloody stools or diarrhea. [] : Denies dysuria. [] Musculoskeletal: Denies back pain or joint pain. [] Integument: Denies rash. [] Neurologic: Denies headache, focal weakness or sensory changes. [] Endocrine: Denies polyuria or polydipsia. [] Lymphatic: Denies swollen glands. [] Psychiatric: Denies depression or anxiety. [] Allergies: Allergies: Allergies Coded Allergies Type Severity Reaction Last Updated Verified Sulfa (Sulfonamide Antibiotics) Allergy Intermediate stomach aches 12/09/13 Yes albendazole Allergy Intermediate Rash 03/07/14 No codeine Allergy Intermediate H/A's 12/09/13 Yes shrimp Allergy Intermediate Unknown 10/11/16 Yes Physical Exam: PE: Constitutional: Well developed, well nourished, no acute distress, non-toxic appearance. [] HENT: Normocephalic, atraumatic, bilateral external ears normal, oropharynx moist, nose normal. [] Eyes: EOMI, conjunctiva normal, no discharge. [] Neck: Normal range of motion, no tenderness, supple, no stridor. [] Cardiovascular:Heart rate regular rhythm, no murmur [] Lungs & Thorax: Bilateral breath sounds clear to auscultation [] Abdomen: Bowel sounds normal, soft, no tenderness, no masses, no pulsatile masses. [] Skin: Warm, dry, no erythema, no rash. [] Back: No tenderness, no CVA tenderness. [] Extremities: No tenderness, no cyanosis, no clubbing, ROM intact, no edema. [] Neurologic: Alert and oriented X 3, normal motor function, normal sensory function, no focal deficits noted. [] Psychologic: Affect normal, judgement normal, mood normal. [] Pelvic: External genitalia normal, no abnormal vaginal discharge, no vaginal bleeding, cervical loss closed with no signs of any vaginal bleeding, no CMT or adnexal tenderness, tolerated exam well Current Patient Data: Labs: Laboratory Tests Test 11/02/19 15:54 11/02/19 15:57 11/02/19 17:00 Urine Collection Type Unknown Urine Color Yellow Urine Clarity Clear Urine pH 5.0 (<5.0-8.0) Urine Specific [place] 1.025 (1.000-1.030) Urine Protein Negative mg/dL (NEG-TRACE) Urine Glucose (UA) Negative mg/dL (NEG) Urine Ketones (Stick) Trace mg/dL (NEG) Urine Blood Negative (NEG) Urine Nitrite Negative (NEG) Urine Bilirubin Negative (NEG) Urine Urobilinogen Dipstick 0.2 mg/dL (0.2 mg/dL) Urine Leukocyte Esterase Negative (NEG) Urine RBC 0 /HPF (0-2) Urine WBC 1-4 /HPF (0-4) Urine Squamous Epithelial Cells Few /LPF Urine Bacteria Few /HPF (0-FEW) Urine Mucus Slight /LPF POC Urine HCG, Qualitative Hcg positive (Negative) White Blood Count 11.1 x10^3/uL (4.0-11.0) H Red Blood Count 4.87 x10^6/uL (3.50-5.40) Hemoglobin 14.5 g/dL (12.0-15.5) Hematocrit 41.8 % (36.0-47.0) Mean Corpuscular Volume 86 fL (79-100) Mean Corpuscular Hemoglobin 30 pg (25-35) Mean Corpuscular Hemoglobin Concent 35 g/dL (31-37) Red Cell Distribution Width 12.8 % (11.5-14.5) Platelet Count 297 x10^3/uL (140-400) Neutrophils (%) (Auto) 76 % (31-73) H Lymphocytes (%) (Auto) 18 % (24-48) L Monocytes (%) (Auto) 5 % (0-9) Eosinophils (%) (Auto) 1 % (0-3) Basophils (%) (Auto) 1 % (0-3) Neutrophils # (Auto) 8.4 x10^3/uL (1.8-7.7) H Lymphocytes # (Auto) 2.0 x10^3/uL (1.0-4.8) Monocytes # (Auto) 0.5 x10^3/uL (0.0-1.1) Eosinophils # (Auto) 0.1 x10^3/uL (0.0-0.7) Basophils # (Auto) 0.1 x10^3/uL (0.0-0.2) Sodium Level 139 mmol/L (136-145) Potassium Level 3.8 mmol/L (3.5-5.1) Chloride Level 104 mmol/L (98-107) Carbon Dioxide Level 26 mmol/L (21-32) Anion Gap 9 (6-14) Blood Urea Nitrogen 5 mg/dL (7-20) L Creatinine 0.8 mg/dL (0.6-1.0) Estimated GFR (Cockcroft-Gault) 89.7 BUN/Creatinine Ratio 6 (6-20) Glucose Level 97 mg/dL (70-99) Calcium Level 8.7 mg/dL (8.5-10.1) Total Bilirubin 0.4 mg/dL (0.2-1.0) Aspartate Amino Transferase (AST) 14 U/L (15-37) L Alanine Aminotransferase (ALT) 11 U/L (14-59) L Alkaline Phosphatase 50 U/L (46-116) Total Protein 7.3 g/dL (6.4-8.2) Albumin 3.5 g/dL (3.4-5.0) Albumin/Globulin Ratio 0.9 (1.0-1.7) L Laboratory Tests 11/02/19 17:00 Laboratory Tests 11/02/19 17:00 Vital Signs: Vital Signs Date Time Temp Pulse Resp B/P (MAP) Pulse Ox O2 Delivery O2 Flow Rate FiO2 11/02/19 16:40 97.8 104 16 101/60 (74) 98 Room Air 97.8 EKG: EKG: [] Radiology/Procedures: Radiology/Procedures: IMAGING REPORT Signed PATIENT: GARCIA TOMLIN ACCOUNT: [id number] : 1995 LOCATION: ER AGE: 24 SEX: F EXAM STATUS: REG ER ORD. PHYSICIAN: FILIPPO TAPIA DO REASON: vb in PROCEDURE: PREG 1ST TRIMESTER Study: US PREG 1ST TRIMESTER DATE: 11/02/2019 4:39 PM INDICATION: Vaginal bleeding. COMPARISON: None during this gestation. TECHNIQUE: Transvaginal ultrasonography of the pelvis was performed. Color Doppler and duplex were utilized as appropriate. FINDINGS: The uterus is measured at 7.4 x 4.8 x 4.4 cm. Intrauterine ovoid cystic focus in the fundal region measures 0.59 cm. There are tiny foci of increased echogenicity within this structure. No discrete yolk sac or pole. Hyperechoic tissue surrounds this cyst which could represent a decidual reaction. The right ovary measures 5.1 x 3.2 x 2.5 cm. Doppler flow is maintained. Several follicles. The left ovary measures 5.6 x 3.4 x 2.3 cm. Peripherally solid and centrally cystic focus within the left ovarian with Doppler flow to the solid portion. No pole/yolk sac centrally. Immediately adjacent to the left ovary is a thin-walled cyst with a frond-like soft tissue excrescence with no significant vascularity. Simple appearing free fluid at the left adnexa and within the pelvic cul-de-sac. IMPRESSION: 1. Small intrauterine cystic focus measuring 0.59 cm could represent a gestational sac corresponding to an estimated gestational age of 5 weeks 2 days. No yolk sac or pole is seen but this is not unexpected given the size. Short term follow-up is needed such as in two weeks to confirm the trajectory of the . 2. Complex cyst at the left ovary is favored more likely a corpus luteum than an ectopic. There is an additional small left adnexal cyst with a soft-tissue appendage which is of uncertain etiology but not typical of an ectopic as well. However, given non-visualization of an intrauterine yolk sac/ pole, an ectopic cannot be fully excluded at this time again necessitating short-term follow-up. 3. Small volume left adnexal and deep pelvic fluid appears simple as opposed to hemorrhagic. Electronically signed by: JOE NOGUERA MD (11/02/2019 6:27 PM) [id number] DICTATED and SIGNED BY: JOE NOGUERA MD DATE: 11/02/191826 Course & Med Decision Making: Course & Med Decision Making Pertinent Labs and Imaging studies reviewed. (See chart for details) Concern for abdominal cramping in a well-appearing patient with no signs of vaginal bleeding or hemorrhage. Patient is hemodynamically stable. Basic labs are unremarkable. Urinalysis shows no sign of infection. Ultrasound cannot exclude ectopic , possible early intrauterine but no confirmed uterine . HCG quant in discriminatory zone for TVUS confirmation or IUP. Patient with no severe abdominal pain or vaginal bleeding or back pain. Patient will be prescribed vitamins with strict ED return precautions for worsening pain or vaginal bleeding. No indication for RhoGam at this time. Pt has an ob appointment tomorrow morning. Encouraged urgent outpatient follow-up with PMD and [facility]AGE [facility]-we will need a repeat ultrasound in 1 week. Life-threatening processes were considered but are low suspicion at this time, given history and physical exam. Pt was educated on all prescription medications and adverse effects. All patient's questions were answered and pt was stable at time of discharge. Differential includes aortic dissection, aortic aneurysm, acute coronary synd dana, surgical abdomen (appendicitis, cholecystitis, ischemic bowel, strangulated hernia, etc), bowel obstruction or volvulus, bladder outlet obstruction, gastrointestinal bleeding, inflammatory bowel disease, peptic ulcer disease, sepsis, diverticular disease, ureterolithiasis, nephrolithiasis, ov vin or testicular torsion, ectopic I spoken with the patient and her caregivers. I explained the patient's condition, diagnoses and treatment plan based on the information available to me at this time. I have answered the patient and her caregiver's questions and addressed any concerns. The patient and her caregivers have a good understanding of patient's diagnosis, condition and treatment plan as can be expected at this point. Vital signs have been stable. Patient's condition is stable and appropriate for discharge from the emergency department. Patient will pursue further outpatient evaluation with primary care physician or other designated or consulting physician as outlined in the discharge instructions. The patient and/or caregivers are agreeable to this plan of care and follow-up instructions have been explained in detail. The patient and/or caregivers have received these instructions in written form and have expressed an understanding of the discharge instructions. The patient and/or caregivers are aware that any significant change of condition or worsening of symptoms should prompt immediate return to this or the closest emergency department or call to 911. [employer] Disclaimer: [employer] Disclaimer: This electronic medical record was generated, in whole or in part, using a voice recognition dictation system. Departure Departure Impression: Primary Impression: Abdominal cramping Additional Impression: and not yet delivered in first trimester Disposition: 01 HOME, SELF-CARE Condition: STABLE Referrals: NO PCP (PCP) Patient Instructions: Abdominal Pain During Additional Instructions: Dr. Calixto Hernandez MD [facility] Address: [address] [place] [address] [facility]mb#95/Ferrous Fumarate/Fa ( TABLET) 1 Each Tablet 1 TAB PO DAILY for 30 Days, #30 TAB 0 Refills Prov: FILIPPO TAPIA DO 11/02/19 Justicifation of Admission Dx: Justifications for Admission: Justification of Admission Dx: N/A FILIPPO TAPIA DO Nov 02, 2019 17:52
--- NOTE | 2019-11-02 18:31 | RAD ---
Study: US PREG 1ST TRIMESTER DATE: 11/02/2019 4:39 PM INDICATION: Vaginal bleeding. COMPARISON: None during this gestation. TECHNIQUE: Transvaginal ultrasonography of the pelvis was performed. Color Doppler and duplex were utilized as appropriate. FINDINGS: The uterus is measured at 7.4 x 4.8 x 4.4 cm. Intrauterine ovoid cystic focus in the fundal region measures 0.59 cm. There are tiny foci of increased echogenicity within this structure. No discrete yolk sac or pole. Hyperechoic tissue surrounds this cyst which could represent a decidual reaction. The right ovary measures 5.1 x 3.2 x 2.5 cm. Doppler flow is maintained. Several follicles. The left ovary measures 5.6 x 3.4 x 2.3 cm. Peripherally solid and centrally cystic focus within the left ovarian with Doppler flow to the solid portion. No pole/yolk sac centrally. Immediately adjacent to the left ovary is a thin-walled cyst with a frond-like soft tissue excrescence with no significant vascularity. Simple appearing free fluid at the left adnexa and within the pelvic cul-de-sac. IMPRESSION: 1. Small intrauterine cystic focus measuring 0.59 cm could represent a gestational sac corresponding to an estimated gestational age of 5 weeks 2 days. No yolk sac or pole is seen but this is not unexpected given the size. Short term follow-up is needed such as in two weeks to confirm the trajectory of the . 2. Complex cyst at the left ovary is favored more likely a corpus luteum than an ectopic. There is an additional small left adnexal cyst with a soft-tissue appendage which is of uncertain etiology but not typical of an ectopic as well. However, given non-visualization of an intrauterine yolk sac/ pole, an ectopic cannot be fully excluded at this time again necessitating short-term follow-up. 3. Small volume left adnexal and deep pelvic fluid appears simple as opposed to hemorrhagic. Electronically signed by: JOE NOGUERA MD (11/02/2019 6:27 PM) [id number]
[2019-11-02] MEDS ORDERED: PNV1TABL25 PO (18:42)
[2019-11-02 19:40] VITALS: BP 116/7
== END 2019-11-02 19:45 | disposition home or self-care (01) ==
LOC: ER 15:38
DX: O26.891 Other specified pregnancy related conditions, first trimester (principal); R10.30 Lower abdominal pain, unspecified; J45.909 Unspecified asthma, uncomplicated; F17.200 Nicotine dependence, unspecified, uncomplicated; Z98.890 Other specified postprocedural states; Z88.2 Allergy status to sulfonamides; Z88.5 Allergy status to narcotic agent; Z91.013 Allergy to seafood; Z3A.01 Less than 8 weeks gestation of pregnancy
CPT/HCPCS: 36415; 76801; 80053; 81001; 81025; 84702; 85025; 86850; 86900; 86901; 99284

== ENCOUNTER → 2019-11-15 | Outpatient (CLI) | payer OTHER ==
[2019-11-02 19:40] VITALS: BP 116/7
[~2019-11-15] MED LIST changes: -CETI10TA24 PO; +CETI10TA74 PO; +PNV1TABL25 PO
--- NOTE | 2019-11-16 12:28 | KCIC ---
EXAM: First Trimester OB Ultrasound INDICATION: Reason: SIZE AND DATES / Spl. Instructions: / History: TECHNIQUE: Real-time first trimester obstetrical ultrasound was performed with permanent freeze-frame documentation. COMPARISON: 11/02/2019 OB ultrasound FINDINGS: GESTATIONAL SAC: Gestational sac shape and amniotic fluid volume within normal limits. Mean sac diameter of 1.9 cm corresponds with gestational age of 6 weeks 6 days. POLE: Seen. Yolk sac visualized. CROWN RUMP LENGTH: 0.3 cm, corresponding to a gestational age of 6 weeks and 0 days. HEART RATE: 120 bpm. PLACENTA: Too early to adequately assess. MATERNAL UTERUS: Uterus measures 7.6 x 5.8 x 4.9 cm and is retroverted. MATERNAL ADNEXA: Right ovary is unremarkable measuring 4.4 x 2.9 x 2.4 cm. Left ovary again notable for a thick-walled cystic structure, still favored to represent a corpus luteum. AGE/DATES: Gestational Age by LMP: 6 weeks 6days Gestational Age by US: 6 weeks 3 days EDC by LMP: July 04, 2020 EDC by US: July 08, 2020 IMPRESSION: Normal viable first trimester OB ultrasound. Estimated gestational age of 6 weeks 3 days and EDC of July 08, 2020. Electronically signed by: Hilario Gage MD (11/16/2019 12:25 PM) [id number]
== END | disposition home or self-care (01) ==
LOC: KCIC US 16:05
PROVIDERS: ATTEND Obstetrics & Gynecology
DX: Z34.91 Encounter for supervision of normal pregnancy, unspecified, first trimester (principal); Z3A.01 Less than 8 weeks gestation of pregnancy
CPT/HCPCS: 76801